=== PATIENT | female | born 1935 | race Caucasian/White ===

== ENCOUNTER 2016-07-18 05:46 | Day surgery (SDC) | payer OTHER ==
--- NOTE | 2016-07-15 11:07 | HISTORY AND PHYSICAL ---
HISTORY: The patient is an 80-year-old female who we have been managing with pessaries over the last several years who is having increasing problems with prolapse despite pessary use and is now wishing to proceed towards surgical intervention. She is being admitted at this time for an obliterative procedure, LeFort, as well as an Obtryx sling. The risks and benefits have been discussed. PAST MEDICAL HISTORY: Positive for hypertension and constipation and prolapse. PAST SURGICAL HISTORY: Positive for bilateral lower extremity vein stripping and a right knee replacement. She is noted to be a para 2-0-0-2. ALLERGIES: Codeine. CURRENT MEDICATIONS: Amlodipine 10, Toprol-XL 25, Pantoprazole 40, spironolactone/hydrochlorothiazide 25/25, and p.r.n. medications. SOCIAL HISTORY: Negative for tobacco or EtOH or drugs. FAMILY HISTORY: Noncontributory. PHYSICAL EXAMINATION: GENERAL: BMI is 20.08. HEENT: Normocephalic, atraumatic. PERRLA. EOMI. No thyromegaly. CV: Regular rate and rhythm without murmur, gallop, or rub. PULMONARY: Clear auscultation and percussion. ABDOMEN: Soft. : Shows POP-Q stage III prolapse with it mostly being an anterior and apical issue however with the management of the pessary over the last several years she has more of a symmetric defect now in the anterior and posterior compartments. NEUROLOGIC: Afocal. EXTREMITIES: Without clubbing, cyanosis, or edema. ASSESSMENT AND PLAN: Patient admitted at this time for LeFort colpocleisis and mid urethral sling. The risks and benefits have been discussed at length. She understands and wishes to proceed.
[2016-07-18] MEDS ORDERED: FENTANYL ONE (06:14)
[2016-07-18] MEDS ORDERED: SODIUM CHLORIDE 0.9% IV ONE (08:15)
[2016-07-18] MEDS ORDERED: PROTONIX IV ONE (08:15)
[2016-07-18] MEDS ORDERED: XYLOCAINE-MPF 1% 5 ML ONE (08:17)
[2016-07-18] MEDS ORDERED: VERSED ONE (08:32)
[2016-07-18] MEDS ORDERED: NS 250 ML ONE (08:38)
[2016-07-18] MEDS ORDERED: CLAVE SECONDARY SET 11953 ONE (08:40)
[2016-07-18] MEDS ORDERED: KEFZOL 1 GM/D5W 50 ML ONE (08:40)
[2016-07-18] MEDS ORDERED: SODIUM CHLORIDE 0.9% ONE (08:43)
[2016-07-18] MEDS ORDERED: SENSORCAINE 0.25%/EPI 1:200,000 ONE (08:43)
[2016-07-18] MEDS ORDERED: METROGEL-VAGINAL 0.75% GEL ONE (08:43)
[2016-07-18] MEDS ORDERED: D10W 500 ML ONE (08:44)
--- NOTE | 2016-07-18 08:45 | EKG Report ---
Test Performed on : 07/18/2016 07:34:49 AM Test Reason : PRE OP SURGERY Blood Pressure : / mmHG Vent. Rate : 074 BPM Atrial Rate : 074 BPM P-R Int : 184 ms QRS Dur : 072 ms QT Int : 402 ms P-R-T Axes : 072 -16 097 degrees QTc Int : 446 ms Sinus rhythm. with occasional premature ventricular complexes. Low voltage QRS Nonspecific T wave abnormality Abnormal ECG When compared with ECG of 27-MAR-2015 13:58, Nonspecific T wave abnormality, improved in Anterior leads Unconfirmed Result
[2016-07-18] MEDS ORDERED: ULTRACET 37.5MG/325MG PO PRN (08:47)
[2016-07-18] MEDS ORDERED: ZOFRAN ODT PO PRN (08:47)
[2016-07-18] MEDS ORDERED: DIPRIVAN 1% ONE (10:21)
[2016-07-18] MEDS ORDERED: EPHEDRINE ONE (10:22)
[2016-07-18] MEDS ORDERED: LR 1,000 ML ONE ×2 (10:29→10:30)
[2016-07-18] MEDS: COLACE PO SCH ×2 (11:33→20:25)
[2016-07-18] MEDS: LOPRESSOR PO SCH (11:34)
[2016-07-18] MEDS: NORVASC PO SCH (11:35)
[2016-07-18] MEDS: PERIDEX MT SCH ×2 (11:35→20:25)
[2016-07-18] MEDS: HYDROCHLOROTHIAZIDE PO SCH (11:39)
--- NOTE | 2016-07-18 12:30 | OPERATIVE NOTE ---
PROCEDURE DATE: 07/18/2016 PREOPERATIVE DIAGNOSIS: Pelvic organ prolapse. POSTOPERATIVE DIAGNOSIS: Pelvic organ prolapse. PROCEDURE: 1. LeFort colpocleisis. 2. Obtrex sling. 3. Perineocele repair. 4. Dilation and curettage. SURGEON: Yoshi Klein MD ASSIGNMENT DESK ASSISTANT: Darryl Christianson MD ANESTHESIA: General. ESTIMATED BLOOD LOSS: 30 mL. HISTORY: The patient is an 80-year-old female who we have been managing with pessary over the last several years, who is struggling now with increasing difficulties with ulcerations, who wished to proceed with surgical intervention. The risks and benefits have been discussed. OPERATIVE FINDINGS: Consistent with our preop diagnosis. She had POP-Q stage III prolapse. DESCRIPTION OF PROCEDURE: Patient was taken to the operating room, placed in supine position. After adequate general anesthesia was obtained, she was placed in the [facility] cane stirrups. The vagina and perineum prepped and draped in the usual fashion. At this time, the defect was identified in the anterior and the posterior compartment. Allis clamp was placed on the cervix to manipulate the cervix. We used a Ray-Chantelle to dry out the vaginal area completely and then used a marking pen to denote our anterior and posterior rectangles of tissue to be excised. Starting in the anterior compartment, we did a hydrodissection superficially of the vaginal mucosa using of 0.25% Marcaine with epinephrine diluted 50% with normal saline. We then used a scalpel to delineate our dissection area as was determined with our marking pen. We then use traction and counter traction with Allis clamps and the Metzenbaum scissors to do a split-thickness dissection of the vaginal mucosa in an attempt to leave as much of the deeper sections of the vaginal mucosa as possible. Upon doing this, we then turned our attention towards the posterior compartment. Again, marking this area, injecting in a similar fashion with the same diluent and then using a scalpel to aubrey our dissection lines. We then again used traction and counter traction with Allis clamps and Metzenbaum scissors to excise the posterior rectangle out. Using interrupted 2-0 Vicryl ligatures, we then began closing anterior to posterior in the typical fashion for the colpocleisis. We did this until we had complete resolution of her defect starting initially at the most proximal portion working down to the distal portion. At this time, we then closed the anterior and posterior leaves of the vaginal mucosa with interrupted 0 Vicryl ligature. We had complete closure with tunnels performed on each side. Prior to beginning our dissection, because we did not have a tissue diagnosis we did place a Telfa pad in the posterior compartment and gently dilated the cervix to perform endometrial biopsy. This was done with sharp curette, scant to no tissue was obtained. However, we did not have a tissue diagnosis prior to this point and I felt that it was important to do so. So, we also had D and C, as a procedure that was performed. After completion of the colpocleisis, we then turned our attention towards placing the sling. The urethra was grasped proximally and distally and we injected another 8 mL of diluent. We then made a sagittal incision and did sharp dissection up towards the ischial pubic ramus on each side. Based on the bony landmarks and the insertion of the adductor longus, a stab incision was made on the left-hand side and the halo device was introduced through this incision to the trimming machine operator's finger, which directed the needle out. The mesh was attached to it, it was retracted back through the skin and this was performed on the contralateral side in a similar fashion. We then filled the bladder approximately 200 mL with D 10 and upon doing so, we were able to visualize both ureteral orifices effluxing urine. The bladder was noted to be normal throughout and there was no evidence of any suture material or mesh. Cystoscope was removed and a Annabella clamp was placed the mid urethral position. The tape was brought out the Annabella clamp. Blue tag was excised and the sheaths were easily removed. There was no tension on the mesh whatsoever. The mid urethral incision was closed with running 2.0 Vicryl ligature. We then turned our attention towards correction of the perineocele and improvement of the genital hiatus. We made a michael-shaped incision across the perineum going into the vaginal canal. We then injected this area again with the same diluent. Upon doing this, we then used a scalpel to dissect out our michael-shaped area. We continued with our dissection laterally to the bulbocavernosus muscles and we then used 0 Vicryl ligature in [id number] fashion to plicate the bulbocavernosus muscles and close the genital hiatus. Upon doing this, we then used a 2.0 Vicryl ligature to reapproximate the vaginal edges in the perineum. Piedra catheter was placed. Sponge count, instrument count, and needle counts correct x3. Packs and drains were Piedra. Patient was awakened, taken to recovery room with vital signs stable.
[2016-07-18] MEDS ORDERED: LASIX ONE (14:00)
[2016-07-18] MEDS ORDERED: XYLOCAINE-MPF 2% ONE (14:00)
[2016-07-18] MEDS ORDERED: ROBINUL ONE (14:00)
[2016-07-18] MEDS ORDERED: DECADRON ONE (14:00)
[2016-07-18] MEDS ORDERED: ZOFRAN ONE (14:00)
[2016-07-18] MEDS ORDERED: ZEMURON ONE (14:00)
[2016-07-18] MEDS ORDERED: TORADOL ONE (14:00)
[2016-07-18] MEDS ORDERED: NEOSTIGMINE ONE (14:00)
[2016-07-18] MEDS: TORADOL IV SCH ×2 (14:35→20:25)
[2016-07-18] MEDS: ALDACTONE PO SCH (17:05)
[2016-07-18] MEDS: LR 1,000 ML IV SCH (19:10)
--- NOTE | 2016-07-18 19:41 | PROGRESS NOTE ---
DATE: 07/18/2016 SUBJECTIVE: Patient is alert oriented x3. She is sitting up eating dinner. Her is with her. OBJECTIVE: Vital Signs: Afebrile. Vital signs stable. Urine output has been excellent. ASSESSMENT/PLAN: Routine postoperative care. We will plan on discontinuation the Piedra in a.m., voiding trial in a.m., and plan on discontinuation after completion of voiding trial.
[2016-07-18] MEDS ORDERED: LOPRESSOR PO SCH (21:00)
[2016-07-19] MEDS: LR 1,000 ML IV SCH ×2 (02:48→03:50)
[2016-07-19] MEDS: TORADOL IV SCH ×2 (02:49→08:05)
[2016-07-19] MEDS ORDERED: PRILOSEC PO SCH (07:00)
[2016-07-19] MEDS: IMDUR PO SCH ×2 (07:26→09:26)
[2016-07-19] MEDS: PERIDEX MT SCH (09:25)
[2016-07-19] MEDS: COLACE PO SCH (09:25)
[2016-07-19] MEDS: HYDROCHLOROTHIAZIDE PO SCH (09:26)
[2016-07-19] MEDS: ALDACTONE PO SCH (09:26)
[2016-07-19] MEDS: LOPRESSOR PO SCH (09:26)
[2016-07-19] MEDS: NORVASC PO SCH (09:31)
[2016-07-19 11:53] VITALS: BP 93/42
--- NOTE | 2016-07-19 20:13 | DISCHARGE SUMMARY ---
ADMISSION DATE: 07/18/2016 DISCHARGE DATE: 07/19/2016 PRINCIPAL DIAGNOSIS: Pelvic organ prolapse. PROCEDURE: LeFort colpocleisis, perineorrhaphy and mid urethral sling with Obtryx. HISTORY: The patient is an 80-year-old female who is having increasing pelvic organ prolapse who was admitted for surgical correction. HOSPITAL COURSE: The patient underwent the above-stated procedure. Blood loss at that time was approximately 50 mL. Her postoperative course has been uncomplicated. She is struggling some with her voiding trial, therefore, we are going to send her home for 2 more days of continuous drainage to give the bladder a little bit more time to recover. She will remove it in 2 days and then come to our office for a voiding trial. DISCHARGE MEDICATIONS: Tramadol and Colace. DISCHARGE INSTRUCTIONS: She was instructed in a regular diet and decreased activity.
== END 2016-07-19 15:10 | disposition home or self-care (01) ==
LOC: OPS 05:46 → P.WC 05:50 → OPS 07-19 15:10
PROVIDERS: ATTEND Obstetrics & Gynecology
DX: N81.89 Other female genital prolapse (principal); I10 Essential (primary) hypertension; K59.00 Constipation, unspecified
CPT/HCPCS: 93005; 93010; 94799; C1771; J0690; J1100; J1885; J1940; J2250; J2405; J3010; J7050; J7120; J2710